=== PATIENT | female | born 1995 | race Two or more races ===

== ENCOUNTER 2018-10-31 10:18 | Emergency (ER) | payer MEDICAID ==
[~2018-10-31] VITALS: Ht 167.6 cm; Wt 68.0 kg
[2018-10-31 10:28] VITALS: BP 106/71
[2018-10-31] MEDS ORDERED: EPINEPHrine HCL 1 MG/1 ML AMP SC ONE (11:30)
== END 2018-10-31 12:05 | disposition home or self-care (01) ==
LOC: ER 10:18
DX: L23.9 Allergic contact dermatitis, unspecified cause (principal)
CPT/HCPCS: 96372; 99283; J0171